=== PATIENT | female | born 1965 | race Caucasian/White ===

== ENCOUNTER 2017-09-18 11:47 | Observation (INO) | payer OTHER ==
[2017-09-18] MEDS ORDERED: Acetaminophen 325 MG TAB PO PRN (13:14)
[2017-09-18] MEDS ORDERED: Guaifenesin DM 100-10/5 ML UDCUP PO PRN (13:14)
[2017-09-18] MEDS ORDERED: Senokot 8.6 MG TAB PO PRN (13:14)
[2017-09-18] MEDS ORDERED: Dextrose 50% Abboject 50 ML SYRINGE SLOW IVP PRN (13:14)
[2017-09-18] MEDS ORDERED: HumaLOG 300 UNITS/3 ML VIAL SC PRN (13:14)
[2017-09-18] MEDS ORDERED: Dextrose 5% in Water 1,000 ML IV PRN (13:14)
[2017-09-18 14:19] LABS: Ferritin 229.46 ng/mL (10-291)
[2017-09-18 14:33] LABS: HBCM Index 0.18 S/CO (0-0.79); HBSAg Index 0.22 S/CO (0-0.99); Hep A IgM AB Non-Reactive (NonReactive); Hep A IgM S/CO 0.46 S/CO (0-0.79); Hep B Surf Ag Non-Reactive S/CO (NonReactive); Hep C IgG Ab Non-Reactive (NonReactive); Hep C Index 0.09 S/CO (0-0.79); Hepatitis B Core IGM Abs Non-Reactive (NonReactive)
[2017-09-18 14:55] VITALS: BMI 46.7
--- NOTE | 2017-09-18 14:58 | CT ---
CT NONCONTRAST ENHANCED CHEST: Date: 09/18/17 HISTORY: Patient with dizziness, pain. FINDINGS: Noncontrast enhanced CT of the chest is performed. No evidence of significant pulmonary parenchymal m asses seen. There does appear to be some thickening of one of the right middle lobe bronchi. There ma y be some adjacent areas of right middle lobe scarring. No definite evidence of pneumonia is seen. No evidence of mediastinal masses or lesions seen. Coronary artery calcifications seen. No evidence o f axillary, hilar, or significant mediastinal lymphadenopathy seen. IMPRESSION: 1. No definite evidence of pneumonia. 2. The patient has had a previous cholecystectomy. POS: [facility]
[2017-09-18 15:20] LABS: Iron 104 ug/dL (50-170); Iron Binding Capacity, Total 349 mcg/dL (265-497)
[2017-09-18] MEDS: Sodium Chloride 0.9% 1,000 ML IV SCH (15:54)
--- NOTE | 2017-09-18 18:20 | HP ---
REASON FOR ADMISSION: Severe dizziness/vertigo. HISTORY OF PRESENTING ILLNESS: The patient gives history of waking up around 5: 30 in the morning and feeling very dizzy. This happened when she tried to go to the restroom. She laid back on the bed until 7:00 a.m. When she got up, she was still dizzy, but she managed to hold onto the wall to make a cup of coffee. She felt very nauseous and threw up one time. She then sat for an hour and still felt the same. Finally, she made it to [facility] ER. She also complains of having neck pain with radiation to the anterior chest. This happened for a brief time and has completely resolved at present. The patient says she has had recent blood work done and was found to have had her liver enzymes elevated and has a scheduled ultrasound of liver and kidneys on the to be done. Also, her stool occult was positive and is waiting for Dr. Gomez's office to call for a date for colonoscopy. She has no complaints of fever or prior history of stroke. Has dry cough. She says it is after she took a flu shot. No complaints of urinary symptoms or abdominal pain. PAST MEDICAL AND SURGICAL HISTORY: History of coronary artery disease with prior 2 stents being placed, one in 2010 and another one in [address] Chaevz , obesity, dyslipidemia, diabetes mellitus type 2, hypothyroidism, obesity, C- section, tubal ligation and cholecystectomy. CURRENT MEDICATIONS: Patient takes potassium chloride 20 mEq p.o. daily, hydrochlorothiazide 25 mg p.o. daily, glimepiride 2 mg p.o. twice daily, fenofibrate 160 mg p.o. daily, aspirin 81 mg p.o. daily, levothyroxine 50 mcg p.o. daily, lovastatin 20 mg p.o. daily, metoprolol 12.5 mg p.o. twice daily. ALLERGIES: No known drug allergies. PERSONAL HISTORY: Quit smoking in 2010, prior to which has smoked one pack a day for nearly 30 years. Does not abuse alcohol or drugs. Lives with her . FAMILY HISTORY: Mom at the age of 81 years. She has had history of dementia. Father at the age of 70 years. He has had pancreatic mass and also had coronary artery disease. REVIEW OF SYSTEMS: The following complete review of systems was negative, unless otherwise mentioned in the HPI or below: CONSTITUTIONAL: Weight loss or gain, ability to conduct usual activities. SKIN: Rash, itching. EYES: Double vision, pain. ENT/MOUTH: Nose bleeding, neck stiffness, pain, tenderness. CARDIOVASCULAR: Palpitations, dyspnea on exertion, orthopnea. RESPIRATORY: Shortness of breath, wheezing, cough, hemoptysis, fever or night sweats. GASTROINTESTINAL: Poor appetite, abdominal pain, heartburn, nausea, vomiting, constipation, or diarrhea. GENITOURINARY: Urgency, frequency, dysuria, nocturia. MUSCULOSKELETAL: Pain, swelling. NEUROLOGIC/PSYCHIATRIC: Anxiety, depression. ALLERGY/IMMUNOLOGIC: Skin rash, bleeding tendency. PHYSICAL EXAMINATION: GENERAL: The patient is a 51-year-old female, who is currently not in any acute distress. VITAL SIGNS: Blood pressure 116/76, pulse 70 per minute, respiratory rate 18 per minute, temperature 98.5 degrees Fahrenheit, saturating 96% on room air. NECK: Supple, no elevated JVD. HEENT: Eyes, extraocular muscles intact. Pupils reacting to light. Oral cavity, mucous membranes are dry. No exudates or congestion. CARDIOVASCULAR SYSTEM: S1, S2 heard. Regular rhythm. RESPIRATORY SYSTEM: Air entry 1+ bilateral. No rales or rhonchi. ABDOMEN: Soft, bowel sounds heard. No tenderness, rigidity or guarding. EXTREMITIES: No peripheral edema or calf tenderness. VASCULAR SYSTEM: Peripheral pulses 1+ bilateral. No ischemic ulcerations or gangrene. CENTRAL NERVOUS SYSTEM: No gross focal deficits seen. Patient is alert, awake , oriented well. PSYCHIATRIC: The patient's mood is euthymic. No hallucinations or delusions. LABORATORY AND X-RAY FINDINGS: White count of 8, H&H 13 and 38, platelet count 160, MCV is 94 with 71% neutrophils. Electrolytes are stable. BUN 14, creatinine 0.6, glucose 88, AST 76, ALT 100, alkaline phosphatase 77. First set of cardiac enzymes are negative. Albumin is 4.1, lipase is 9. UA is negative for any infection. Chest x-ray done shows questionable right middle lobe airspace opacity versus mediastinal fat. CT brain done shows no acute intracranial abnormalities. EKG done shows normal sinus rhythm at 68 beats per minute with a low voltage EKG. CLINICAL IMPRESSION AND PLAN: The patient will be under observation on the stroke unit for severe vertigo. We will obtain orthostatic blood pressures. She will be on normal saline at 100 mL per hour. We will obtain a CT chest without contrast to better delineate her lungs in view of dry cough. We will continue her on aspirin 325 mg daily along with Tricor, glimepiride, levothyroxine and Lopressor as before. Acute hepatitis panel for her slightly elevated liver enzymes and iron studies. We will also obtain lipid profile in the morning. We will also obtain an echo with 2D Doppler for left ventricular function. We will continue to closely monitor her on telemetry. ALBERTO
[2017-09-18] MEDS: Metoprolol Tartrate 25 MG TAB PO SCH (20:37)
[2017-09-18] MEDS: Famotidine 20 MG TAB PO SCH (20:37)
[2017-09-19] MEDS: Sodium Chloride 0.9% 1,000 ML IV SCH ×2 (00:28→09:40)
[2017-09-19 05:21] LABS: Anion Gap 13 mmol/L (10-20); BUN (Urea Nitrogen) 16 mg/dL (9.8-20.1); Calc. Creatinine Clearance 192 mL/min (70-130); Calcium 9.2 mg/dL (7.8-10.44); Carbon Dioxide 25 mmol/L (22-29); Cardiac Risk 3.6 (Less than 4.5); Chloride 107 mmol/L (98-107); Cholesterol 154 mg/dl (< 200 Desired); Estimated GFR-MDRD 86; Glucose 88 mg/dL (70-105); HDL Cholesterol 43 mg/dL (>60 Neg Risk); LDL Cholesterol, Calculated 88 mg/dL; Potassium 3.7 mmol/L (3.5-5.1); Sodium 141 mmol/L (136-145); Triglycerides 113 mg/dL (Less than 150)
[2017-09-19 05:55] LABS: Eosinophils 2 % (0-10); Lymphocytes 24 % (21-51); MDiff Complete? YES; Mean Corpuscular Hemoglobin 32.9 pg (27.0-31.0); Mean Corpuscular Volume 99.7 fl (81.0-99.0); Mean Platelet Volume 7.9 fL (7.4-10.4); Monocytes 4 % (0-10); Neutrophil 70 % (42-75); Platelet Count 193 thou/uL (130-400); RBC Distribution Width 12.8 % (11.5-14.5); Red Blood Cell (RBC) Count 3.94 mill/uL (4.20-5.40); White Blood Cell (WBC) Count 5.4 thou/uL (4.8-10.8)
[2017-09-19] MEDS ORDERED: Levothyroxine Sodium 50 MCG TAB PO SCH (06:00)
[2017-09-19] MEDS ORDERED: Glimepiride 2 MG TAB PO SCH (08:00)
[2017-09-19 08:12] VITALS: BP 134/95; TEMP 97.4
[2017-09-19] MEDS ORDERED: Aspirin 325 mg Enteric Coated Tablet PO SCH (09:00)
[2017-09-19] MEDS ORDERED: Enoxaparin Sodium 40 MG/0.4 ML SYRINGE SC SCH (09:00)
[2017-09-19] MEDS ORDERED: Fenofibrate Nanocrystallized 145 MG TAB PO SCH (09:00)
[2017-09-19] MEDS: Famotidine 20 MG TAB PO SCH (09:34)
[2017-09-19] MEDS: Metoprolol Tartrate 25 MG TAB PO SCH (09:35)
--- NOTE | 2017-09-19 10:10 | PDOC.PN ---
- Subjective Encounter Start Date: 09/19/17 Encounter Start Time: 07:00 Subjective: feels better, is amb in room -: no chest pain or sob - Objective Resuscitation Status: Resuscitation Status FULL:Full Resuscitation MAR Reviewed: Yes Vital Signs & Weight: Vital Signs (12 hours) Temp Pulse Resp BP BP BP BP 09/19/17 08:00 97.4 F L 64 24 H 134/95 H 09/19/17 03:58 97.3 F L 66 20 145/83 H 140/92 H 134/87 09/19/17 00:07 98.9 F 63 20 115/69 Pulse Ox 09/19/17 08:00 97 09/19/17 03:58 95 09/19/17 00:07 97 Weight Weight 288 lb 11.2 oz I&O: 09/18/17 09/19/17 09/20/17 06:59 06:59 06:59 Intake Total 2387 Balance 2387 Result Diagrams: 09/19/17 04:10 09/19/17 04:10 Additional Labs: Accuchecks 09/19/17 09/18/17 09/18/17 05:43 20:37 17:09 POC Glucose 100 96 185 H Phys Exam - Physical Examination HEENT: PERRLA, moist MMs Neck: no JVD, supple Respiratory: no wheezing, no rales Cardiovascular: RRR, no significant murmur Gastrointestinal: soft, non-tender, positive bowel sounds Musculoskeletal: no edema, pulses present Neurological: non-focal, moves all 4 limbs Psychiatric: A&O x 3 Dx/Plan (1) Dizziness Code(s): R42 - DIZZINESS AND GIDDINESS Status: Acute Comment: resolving (2) Orthostasis Code(s): I95.1 - ORTHOSTATIC HYPOTENSION Status: Acute (3) DM type 2 (diabetes mellitus, type 2) Status: Chronic Qualifiers: Diabetes mellitus complication status: with unspecified complications Diabetes mellitus custodial insulin use: without custodial use Qualified Code( s): E11.8 - Type 2 diabetes mellitus with unspecified complications (4) Dyslipidemia Code(s): E78.5 - HYPERLIPIDEMIA, UNSPECIFIED Status: Chronic (5) Obesity Code(s): E66.9 - OBESITY, UNSPECIFIED Status: Chronic Qualifiers: Obesity classification: adult class 3 (BMI >= 40) Body mass index: BMI 45.0 -49.9 (6) CAD (coronary artery disease) Code(s): I25.10 - ATHSCL HEART DISEASE OF [place] CORONARY ARTERY W/O ANG PCTRS Status: Chronic Qualifiers: Coronary Disease-Associated Artery/Lesion type: [place] artery [place] vs. transplanted heart: [place] heart Associated angina: without angina Qualified Code(s): I25.10 - Atherosclerotic heart disease of [place] coronary artery without angina pectoris - Plan may dc home after current iv fluid bag is completed -: to amb in hallway prior to going home -: ldl is 88, ferritin is 229 -: has outpt [facility] liver and colonoscopy scheduled -: hemostable * .
--- NOTE | 2017-09-19 19:22 | DIS ---
DATE OF ADMISSION: 09/18/2016 DATE OF DISCHARGE: 09/19/2017 DISCHARGE DISPOSITION: To home. PRIMARY DISCHARGE DIAGNOSIS: Dizziness secondary to orthostasis, resolving. SECONDARY DISCHARGE DIAGNOSES: Diabetes mellitus type 2, dyslipidemia, obesity, coronary artery dise ase. PROCEDURES DONE DURING HOSPITALIZATION: The patient has had CT chest done, which showed no acute inf iltrate. LDL is 88, total cholesterol 154, triglycerides 113, ferritin is 229. Serum iron is 10.4. Acute hepatitis panel was negative. Initial CT brain done on arrival showed no acute intracranial a bnormalities. DISCHARGE MEDICATIONS: The patient to continue aspirin 81 mg p.o. daily, fenofibrate 160 mg p.o. jennifer ly, glimepiride 2 mg p.o. twice daily, hydrochlorothiazide 25 mg from tomorrow, Synthroid 50 mcg p.o. daily, Mevacor 20 mg p.o. at bedtime, Lopressor 25 mg p.o. twice daily, K-Dur 20 mEq p.o. daily. ALLERGIES: No known drug allergies. DISCHARGE PLAN: The patient to follow up with primary care physician in 1 week. BRIEF COURSE DURING HOSPITALIZATION: The patient initially got admitted for dizziness. She was plac ed on the stroke unit. Initial CT scan done and was negative. Initial CT brain showed no acute intr acranial abnormalities. Clinically, the patient did not have any stroke-like symptoms. She has had positive orthostasis and was gently hydrated during her stay here. She has done remarkably well and will be shortly discharged home. Please see a face to face documentation on [facility] for the day of discharge.
== END 2017-09-19 12:56 | disposition home or self-care (01) ==
LOC: ERS 11:47 → 2SE 13:03
PROVIDERS: ADMIT Internal Medicine; ATTEND Internal Medicine
DX: I95.1 Orthostatic hypotension (principal); E11.9 Type 2 diabetes mellitus without complications; E78.5 Hyperlipidemia, unspecified; E66.9 Obesity, unspecified; I25.10 Atherosclerotic heart disease of native coronary artery without angina pectoris; R11.2 Nausea with vomiting, unspecified; E03.9 Hypothyroidism, unspecified; Z68.42 Body mass index [BMI] 45.0-49.9, adult; Z79.82 Long term (current) use of aspirin; Z79.84 Long term (current) use of oral hypoglycemic drugs; Z79.899 Other long term (current) drug therapy; Z98.51 Tubal ligation status; Z95.818 Presence of other cardiac implants and grafts; Z90.49 Acquired absence of other specified parts of digestive tract; Z98.890 Other specified postprocedural states; Z87.891 Personal history of nicotine dependence
CPT/HCPCS: 36415; 36416; 71250; 80048; 80061; 80074; 82728; 83540; 83550; 85025; 93306; 96360; 96361; 96372; G0378; J1650